=== PATIENT | male | born 1970 | race Caucasian/White ===

== ENCOUNTER 2022-02-10 01:18 | Outpatient (CLI) | payer SELFPAY | END 2022-02-10 01:19 | disposition home or self-care (01) | LOC: AMB 03-15 08:30 | PROVIDERS: Visit Provider Family Medicine | DX: S06.9X1A Unspecified intracranial injury with loss of consciousness of 30 minutes or less, initial encounter (principal); Y04.2XXA Assault by strike against or bumped into by another person, initial encounter; Y92.9 Unspecified place or not applicable | CPT/HCPCS: A0425; A0427 ==

== ENCOUNTER 2022-02-10 01:45 | Emergency (ER) | payer SELFPAY ==
[2022-02-10] VITALS (14 sets, daily range): BP systolic 93–173; BP diastolic 53–114; PULSE 90–130; RESP 16; TEMP 36.4; O2SAT 89–96
[2022-02-10 01:11] LABS: Basophils Absolute Auto 0.03 K/uL (0.00-0.30); Basophils Percent Auto 0.3 % (0.0-3.0); Eosinophils Absolute Auto 0.09 K/uL (0.00-0.50); Eosinophils Percent Auto 0.9 % (0.0-7.0); Hematocrit 48.3 % (37.0-53.0); Hemoglobin* 16.8 gm/dL (13.5-17.5); Immature Granulocytes Abs Auto 0.06 K/uL (0.00-0.30); Immature Granulocytes Pct Auto 0.6 %; Lymphocytes Absolute Auto 2.93 K/uL (0.90-2.90); Lymphocytes Percent Auto 28.8 % (20-44); Mean Corpuscular HGB Conc 35 gm/dL (32-36); Mean Corpuscular Hemoglobin 31 pg (26-34); Mean Corpuscular Volume 89 fL (80-100); Monocytes Percent Auto 9.6 % (0.0-11.0); Neutrophils Absolute Auto 6.09 K/uL (1.7-7.0); Neutrophils Percent Auto 59.8 % (42.0-72.0); Platelet Count* 209 K/uL (140-440); Red Blood Count 5.45 m/uL (4.30-5.90); White Blood Count* 10.18 K/uL (4.50-11.00)
[2022-02-10 01:13] LABS: Slide Review Reflex No
[2022-02-10 01:25] LABS: Chloride* 108 mmol/L (96-114); Potassium* 3.7 mmol/L (3.6-5.1); Sodium* 144 mmol/L (135-149)
[2022-02-10 01:27] LABS: INR 0.94 (0.91-1.10); Prothrombin Time 13.1 Seconds
[2022-02-10 01:28] LABS: Blood Urea Nitrogen* 13 mg/dL (7-30); Carbon Dioxide* 17 mmol/L (20-32); Creatinine* 0.9 mg/dL (0.5-1.5); Estimated Glomerular Filt Rate 103 ml/min; Ethanol* 0.28 % (0.01-0.03)
[2022-02-10 01:29] LABS: Glucose* 138 mg/dL (60-115)
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
--- NOTE | 2022-02-10 01:52 | CRLHL7_ITS ---
For Patients: As a result of the Century Cures Act, medical imaging exams and procedure reports are released immediately into your electronic medical record. You may view this report before your referring provider. If you have questions, please contact your health care provider. INDICATION: Trauma. TECHNIQUE: Noncontrast CT images acquired through the cervical spine. COMPARISON: None. FINDINGS: Straightening of the cervical lordosis. Mild rightward cervical curvature. Vertebral heights are maintained. No acute fracture, spondylolisthesis, or traumatic subluxation. Degenerative changes at the dens articulation. Left facet joint ankylosis at C2-3. Advanced left facet arthropathy from C3-4 through C5-6 contributing up to moderate neural foraminal narrowing on the left at C3-4 and C5-6. No high-grade spinal canal stenosis. No concerning opacities in the visualized lungs. IMPRESSION: 1. No acute fracture or traumatic subluxation. 2. Multilevel cervical spondylosis. Please note that all CT scans at this facility use dose modulation, iterative reconstruction, and/or weight-based dosing when appropriate to reduce radiation dose to as low as reasonably achievable. Dictated by Harris Veras MD @ 02/10/2022 7:13:56 AM (Electronically Signed)
--- NOTE | 2022-02-10 01:53 | CRLHL7_ITS ---
For Patients: As a result of the Century Cures Act, medical imaging exams and procedure reports are released immediately into your electronic medical record. You may view this report before your referring provider. If you have questions, please contact your health care provider. INDICATION: Head injury. TECHNIQUE: Noncontrast CT images acquired through the brain. COMPARISON: None. FINDINGS: Prominence of the ventricles and sulci compatible with mild diffuse cerebral volume loss. No mass effect or midline shift. The zavala white differentiation is maintained. No acute intracranial hemorrhage or pathologic extra-axial fluid collection. Subgaleal hematoma in the right parietal scalp. No calvarial fracture. The globes are symmetric. The visualized paranasal sinuses and mastoid air cells are clear. The right mastoid air cells are underpneumatized. IMPRESSION: 1. No acute intracranial hemorrhage or mass effect. 2. Subgaleal hematoma in the right parietal scalp. No calvarial fracture. Please note that all CT scans at this facility use dose modulation, iterative reconstruction, and/or weight-based dosing when appropriate to reduce radiation dose to as low as reasonably achievable. Dictated by Harris Veras MD @ 02/10/2022 6:59:41 AM (Electronically Signed)
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
[2022-02-10] MEDS: ONDANSETRON 2 MG/ML inj 4 MG IVP (01:56)
[2022-02-10] MEDS: 0.9 % SODIUM CHLORIDE 1000 ml 1,000 ML IV (02:40)
== END 2022-02-10 04:06 | disposition home or self-care (01) ==
PROVIDERS: Emergency Provider Family Medicine
DX: S06.0X9A Concussion with loss of consciousness of unspecified duration, initial encounter (principal); S00.03XA Contusion of scalp, initial encounter; W18.39XA Other fall on same level, initial encounter; Y93.89 Activity, other specified; Y92.9 Unspecified place or not applicable; Y99.9 Unspecified external cause status; F10.129 Alcohol abuse with intoxication, unspecified; Y90.7 Blood alcohol level of 200-239 mg/100 ml
CPT/HCPCS: 36415; 70450; 71260; 72125; 74177; 80048; 82077; 85025; 85610; 99285; 99291; G0390; J2405; J7030; Q9967